=== PATIENT | male | born 2000 | race Caucasian/White ===

== ENCOUNTER 2023-08-02 16:57 | Emergency (ER) | payer MEDICAID ==
[~2023-08-02] VITALS: Ht 172.7 cm; Wt 93.9 kg
[2023-08-02 17:21] VITALS: BP 148/95; PULSE 102; RESP 18; TEMP 97; O2SAT 98
[2023-08-02 18:00] VITALS: O2SAT 98
[2023-08-02] MEDS: MORPHINE SULFATE 4 MG/ML SYR IM ONE (19:49)
[2023-08-02] MEDS: LIDOCAINE 2% 1000 MG/50 ML VIAL INJ ONE (21:06)
[2023-08-02] MEDS ORDERED: SULF-59 PO (22:37)
[2023-08-02] MEDS: oxyCODONE/APAP 5/325 MG 1 TAB TAB PO ONE (23:02)
== END 2023-08-02 23:04 | disposition home or self-care (01) ==
LOC: MED 16:57
DX: N47.2 Paraphimosis (principal); E10.9 Type 1 diabetes mellitus without complications; R03.0 Elevated blood-pressure reading, without diagnosis of hypertension; Z79.899 Other long term (current) drug therapy
CPT/HCPCS: 54450; 96372; 99284; J2001; J2270